=== PATIENT | female | born 1985 | race Caucasian/White ===

== ENCOUNTER 2021-02-20 02:54 | Inpatient (IN) ==
[2021-02-20] MEDS ORDERED: OXYTOCIN 30 UNITS/500 ML BAG IV PRN ×3 (04:56→21:14)
[2021-02-20] MEDS: LACTATED RINGER'S 1,000 ML IV PRN ×3 (05:00→13:58)
[2021-02-20] MEDS ORDERED: SODIUM CHLORIDE 0.9% INJ 10 ML VIAL ONE (05:10)
[2021-02-20] MEDS ORDERED: ePHEDrine sulfate 50 MG/ML AMP ONE (05:10)
[2021-02-20] MEDS ORDERED: fentaNYL 2MCG/ML ROPIVACAINE 1.25MG/ML 100 ML BAG EPI ONE (05:11)
[2021-02-20] MEDS ORDERED: fentaNYL citrate 100 MCG/2 ML VIAL ONE (05:11)
[2021-02-20] MEDS ORDERED: BUPIVACAINE 0.25% 30 ML VIAL ONE (05:11)
[2021-02-20 05:29] LABS: Hematocrit (blood only) 36.2 % (37-47); Hemoglobin 12.9 g/dL (12.0-16.0); Mean Corpuscular Hemoglobin 30.8 pg (25-34); Mean Corpuscular Hgb Conc 35.6 g/dL (32-36); Mean Corpuscular Volume 86.4 fL (80-100); Platelet Count 267 K/uL (130-400); RDW Standard Deviation 41.1 fL (36.4-46.3); Red Blood Count 4.19 M/uL (4.2-5.4)
[2021-02-20] MEDS ORDERED: fentaNYL 2MCG/ML ROPIVACAINE 1.25MG/ML 100 ML BAG EPI PRN (05:35)
[2021-02-20] MEDS ORDERED: ePHEDrine sulfate 50 MG/ML AMP IV PRN (05:35)
[2021-02-20] MEDS ORDERED: NALOXONE HCL 1 MG in SODIUM CHLORIDE 0.9% 1000ML 1,000 ML IV PRN (05:35)
[2021-02-20] MEDS ORDERED: diphenhydrAMINE 50 MG/ML VIAL IV PRN (05:35)
[2021-02-20] MEDS ORDERED: NALOXONE HCL 0.4 MG/1 ML VIAL/CARP IV PRN (05:35)
[2021-02-20] MEDS ORDERED: ONDANSETRON INJ 2 MG/ML 2 ML VIAL IV PRN (05:35)
--- NOTE | 2021-02-20 05:35 | Anesthesiology Consultation ---
Date of Service February 20, 2021 Assessment & Plan ASA ASA2 Proposed Anesthesia Anesthesia Type: Labor Epidural Risk / Benefits Reviewed With: PT / POA / Parent / Guardian, Accepts Plan and Informed Consent Obtained History Height/Weight Height: 5 ft 3 in Weight: 74.843 kg Allergies Allergy/AdvReac Type Severity Reaction Status Date / Time No Known Drug Allergies Allergy Verified 02/19/21 10:01 Medications Home Medications Medication Instructions Recorded Confirmed Last Taken prenat.vits,paras,[id number] 1 tab PO DAILY 07/07/19 02/20/21 02/19/21 ferrous sulfate 325 mg (65 mg 325 mg PO DAILY 12/26/20 02/20/21 02/19/21 iron) tablet Active Medications Generic Name Dose Route Start Last Admin Trade Name Freq PRN Reason Stop Dose Admin Lactated Ringer's 1,000 mls @ 125 mls/hr 02/20/21 04:56 02/20/21 06:06 Lr IV 02/22/21 04:55 125 mls/hr .Q8H PRN Administration L&D Protocol Protocol Past Medical History Medical History Encounter for anatomic survey Hx of renal calculi Hx of varicella Missed Supervision of normal intrauterine in primigravida Exercise / Class Metabolic Activity II 4-5 Yardwork/Stairs/Walk up hill Past Family History Family History Father Colorectal cancer Hypertension Denies family history of Ovarian cancer Breast cancer Past Surgical History Surgical History H/O lithotripsy [place] teeth removed Past Anesthesia History No Hx of Anesthesia Complications and No Family Hx of Anesthesia Complications History of PONV No Hx of PONV and No Hx of Motion Sickness Social History Smoking Status: Never smoker Hx Alcohol Use: No Hx Substance Use: No Review of Systems denies fever/cough/ colds/ chest pain/ SOB/ SHANITA denies SHANITA Physical Exam Vital Signs Last Vital Signs Temp 36.6 C 02/20/21 06:29 Pulse 97 H 02/20/21 06:35 Resp 18 02/20/21 03:17 BP 131/75 02/20/21 06:35 Pulse Ox 100 02/20/21 06:35 ENMT Mouth: no TMJ abnormality and no dentition abnormality Thyromental Distance: > or= 3.5 Finger Breadths Mallampati Class: II Neck neck extension not limited Respiratory normal respiratory effort; no respiratory distress Auscultation: lungs clear to auscultation bilaterally Cardiovascular Rate/Rhythm: regular rate and regular rhythm Neurologic moves all extremities Psychiatric Orientation: alert and oriented x 3 Testing Laboratory Results 02/20/21 05:16
[2021-02-20 05:57] LABS: Basophils # (auto) 0.01 K/uL (0-0.2); Basophils % (auto) 0.1 %; Eosinophils # (auto) 0.02 K/uL (0-0.5); Eosinophils % (auto) 0.1 %; Immature Granulocytes # (auto) 0.08 K/uL (0.00-0.02); Immature Granulocytes % (auto) 0.4 %; Lymphocytes # (auto) 3.27 K/uL (1.2-3.4); Lymphocytes % (auto) 18.3 %; Monocytes # (auto) 0.78 K/uL (0.11-0.59); Monocytes % (auto) 4.4 %; Neutrophils # (auto) 13.75 K/uL (1.4-6.5); Neutrophils % (auto) 76.7 %
--- NOTE | 2021-02-20 06:57 | History & Physical Report ---
Date of Service February 20, 2021 Assessment & Plan (1) Supervision of normal intrauterine in primigravida: 35yo at 40.1 weks [place]. Early labor 1. Fetus: Cat 1 2. Labor: Progressing. Will AROM when appropriate 3. GBS negative 4. Vitals WNL 5. Epidural PRN (2) Normal labor: Admission and Anticipated Discharge Date Admission Date: February 20, 2021 History of Present Illness Primary Care Provider: NO PCP 35yo at 40.1 weks [place]. Presents with regular contractions. Cervical change noted over 2hr period. Denies VB or LOF. Good FM. 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 OB Labs: Blood Type O Positive 08/08/20 Antibody Screen NEGATIVE 08/08/20 Hemoglobin 10.5 g/dL (12.0-16.0) L 11/27/20 Hematocrit 30.5 % (37-47) L 11/27/20 Mean Corpuscular Volume 87.8 fL (80-100) 08/08/20 Platelet Count 300 K/uL (130-400) 08/08/20 Rubella IgG Antibody Immune (Immune) 08/08/20 Rapid Plasma Reagin Nonreactive (Nonreactive) 08/08/20 Hepatitis B Surface Antigen Neg (Neg) 08/08/20 HIV (1&2) Ab and P24 Ag, 4th Gener Neg (Neg) 08/08/20 Glucose 1 Hour 50 gm Load 101 mg/dl (70-130) 11/27/20 OB Optional Labs: Chlamydia trachomatis RNA NOT DETECTED (NOT DETECTED) 07/25/20 Neisseria gonorrhoeae RNA NOT DETECTED (NOT DETECTED) 07/25/20 Thyroid Stimulating Hormone (TSH) 2.471 uIU/mL (0.30-4.50) 04/22/20 Labs Reviewed: low risk panorama--akh neg cf/sma--ak Allergies Allergy/AdvReac Type Severity Reaction Status Date / Time No Known Drug Allergies Allergy Verified 02/19/21 10:01 Home Medications Medication Instructions Recorded Confirmed Type prenat.vits,paras,[id number] 1 tab PO DAILY 07/07/19 02/20/21 History ferrous sulfate 325 mg (65 mg 325 mg PO DAILY 12/26/20 02/20/21 History iron) tablet Patient History Medical History Encounter for anatomic survey Hx of renal calculi Hx of varicella Missed Supervision of normal intrauterine in primigravida Surgical History H/O lithotripsy [place] teeth removed Family History Father Colorectal cancer Hypertension Denies family history of Ovarian cancer Breast cancer Social History Smoking Status: Never smoker Hx Alcohol Use: No Hx Substance Use: No Preferred Language: Guinean Beliefs That Will Affect Care: None marital status: marital status details: Marcell Stokes (31) [phone] Current Living Situation: Spouse Current Living Situation Comment: with spouse, no pets current occupational status: employed current occupation: self employeed-loss prevention manager Other Information That Helps Us Care for You: No Feels Safe at Home: Yes Safety Concerns: Feels Safe At This Time Assistive Devices: None Physical Exam Constitutional: WD/WN, vitals as above Psychiatric: A+Ox3, euthymic affect Genitourinary: OB Exam Abdomen: + vertex Manual OB Exam: + cervical dilation 3 cm, + cervical effacement 70%, + station high and + amniotic fluid OB Exam Monitor Tracing: + external FHT monitor used, + external uterine monitor used, + category I and + normal FHT variability; no early decelerations present, no late decelerations present and no variable decelerations Results & Data ([facility]) Vital Signs (Past 12 Hours) Vital Signs Temp Pulse Resp BP Pulse Ox 02/20/21 06:50 85 117/73 02/20/21 06:45 92 H 116/75 100 02/20/21 06:41 96 H 121/79 02/20/21 06:40 94 H 99 02/20/21 06:35 97 H 131/75 100 02/20/21 06:30 97 H 117/79 100 02/20/21 06:29 36.6 C 02/20/21 06:25 101 H 100 06/17/21 06:23 79 132/87 02/20/21 06:21 139 H 179/127 H 02/20/21 06:20 98 H 100 02/20/21 06:18 99 H 93 02/20/21 06:17 80 154/72 H 02/20/21 06:15 92 H 99 02/20/21 06:14 91 H 146/86 H 02/20/21 06:12 138/101 H 02/20/21 06:10 76 100 02/20/21 06:05 82 100 02/20/21 06:00 90 100 02/20/21 05:56 96 H 88 L 02/20/21 05:55 94 H 100 02/20/21 05:50 91 H 100 02/20/21 05:45 97 H 143/75 H 99 02/20/21 03:20 88 135/92 02/20/21 03:17 36.6 C 88 18 136/97 02/20/21 03:10 36.6 C 88 18 136/97 Coding Level of Care Code None Diagnoses Supervision of normal intrauterine in primigravida Z34.00 Normal labor O80; Z37.9
--- NOTE | 2021-02-20 09:08 | Labor Progress Brief Note ---
Date of Service February 20, 2021 Subjective Reason For Note: Routine Evaluation Assessment & Plan (1) Supervision of normal intrauterine in primigravida: 35yo at 40.1 weks [place]. Early labor 1. Fetus: Cat 1 2. Labor: Complete. Unclear if rupture or not. Laboring down until urge to push 3. GBS negative 4. Vitals WNL 5. Epidural PRN (2) Normal labor: Admission and Anticipated Discharge Date Admission Date: February 20, 2021 Physical Exam Genitourinary: OB Exam Abdomen: + vertex Manual OB Exam: + cervical dilation 10 cm, + cervical effacement 100% and + station + 1 OB Exam Monitor Tracing: + external FHT monitor used, + external uterine monitor used, + category I and + normal FHT variability; no early decelerations present, no late decelerations present and no variable decelerations Results & Data ([facility]) Vital Signs (Past 12 Hours) Vital Signs Temp Pulse Resp BP Pulse Ox 02/20/21 09:00 90 125/78 100 02/20/21 08:59 107 H 121/83 02/20/21 08:55 94 H 100 02/20/21 08:50 92 H 100 02/20/21 08:45 104 H 100 02/20/21 08:44 101 H 128/78 02/20/21 08:40 98 H 100 02/20/21 08:35 99 H 100 02/20/21 08:30 117 H 18 100 02/20/21 08:29 109 H 129/76 02/20/21 08:25 99 H 100 02/20/21 08:20 88 100 02/20/21 08:15 85 100 02/20/21 08:13 100 H 113/69 02/20/21 08:10 86 100 02/20/21 08:05 81 100 02/20/21 08:00 85 16 100 02/20/21 07:59 86 110/68 02/20/21 07:55 86 100 02/20/21 07:50 79 100 02/20/21 07:45 90 100 02/20/21 07:44 82 115/61 02/20/21 07:40 88 100 02/20/21 07:35 95 H 100 02/20/21 07:30 100 H 16 100 02/20/21 07:28 150 H 114/66 02/20/21 07:25 98 H 100 02/20/21 07:20 94 H 100 02/20/21 07:15 106 H 118/77 100 02/20/21 07:10 103 H 100 02/20/21 07:05 36.7 C 94 H 18 100 02/20/21 07:00 101 H 99 02/20/21 06:55 91 H 111/71 99 02/20/21 06:50 89 117/73 99 02/20/21 06:45 92 H 116/75 100 02/20/21 06:41 96 H 121/79 02/20/21 06:40 94 H 99 02/20/21 06:35 97 H 131/75 100 02/20/21 06:30 97 H 117/79 100 02/20/21 06:29 36.6 C 02/20/21 06:25 101 H 100 02/20/21 06:23 79 132/87 02/20/21 06:21 139 H 179/127 H 02/20/21 06:20 98 H 100 02/20/21 06:18 99 H 93 02/20/21 06:17 80 154/72 H 02/20/21 06:15 92 H 99 02/20/21 06:14 91 H 146/86 H 02/20/21 06:12 138/101 H 02/20/21 06:10 76 100 02/20/21 06:05 82 100 02/20/21 06:00 90 100 02/20/21 05:56 96 H 88 L 02/20/21 05:55 94 H 100 02/20/21 05:50 91 H 100 02/20/21 05:45 97 H 143/75 H 99 02/20/21 03:20 88 135/92 02/20/21 03:17 36.6 C 88 18 136/97 02/20/21 03:10 36.6 C 88 18 136/97 Coding Level of Care Code None Diagnoses Supervision of normal intrauterine in primigravida Z34.00 Normal labor O80; Z37.9
--- NOTE | 2021-02-20 17:46 | Anesthesia Procedure Note ---
Date of Service February 20, 2021 Anesthesia Post Epidural Note Vital Signs Vital Signs: Temp Pulse Resp BP Pulse Ox 36.9 C 96 H 16 122/74 97 02/20/21 15:45 02/20/21 16:43 02/20/21 14:00 02/20/21 16:43 02/20/21 16:20 Pain Intensity Abdomen: Pain Intensity: 5 Notes Mental Status: alert / awake / arousable and participated in evaluation Patient Amnestic to Procedure: No Nausea / Vomiting: adequately controlled Pain: adequately controlled Airway Patency, RR, SpO2: stable & adequate BP & HR: stable & adequate Hydration State: stable & adequate Neuraxial Anesthesia: was administered and sensory block is resolving Anesthetic Complications: no major complications apparent and Pt Satisfied with anesthetic care Epidural: Removed without complications and With tip intact
--- NOTE | 2021-02-20 17:53 | Delivery Summary ---
Vaginal Delivery Summary Date of Service February 20, 2021 Patient is a 35-year-old 2 para 0-0-1-0 white female who presented at 40-1/7 weeks in active labor. Membranes ruptured spontaneously. She received effective epidural analgesia. She required some Pitocin augmentation of her labor, but she progressed to full dilation and pushed effectively for delivery of a viable female infant over intact perineum. The rest of the infant delivered easily after the head was delivered. The infant was placed on the mother's abdomen for further attention and drying. The was spontaneously crying and moving all 4 limbs. The placenta was expressed intact with a three- vessel cord. Post bleeding was controlled with dilute Pitocin. Estimated blood loss was 200 cc. There was no perineal lacerations. A superficial abrasion of the labia was not bleeding and therefore not repaired. Mother and infant were doing well after delivery. Vaginal Delivery Summary [facility] Vaginal Delivery Charge Delivery Type Details: [facility]
[2021-02-20] MEDS ORDERED: BENZOCAINE 20% AER SPR 82.5 GM CAN EXT ONE (18:05)
[2021-02-20] MEDS ORDERED: SUPERCREAM 0.870% 15 GM JAR EXT PRN (21:14)
[2021-02-20] MEDS ORDERED: ACETAMINOPHEN 325 MG TAB PO PRN (21:14)
[2021-02-20] MEDS ORDERED: oxyCODONE/ACETAMINOPHEN 5mg/325mg TAB PO PRN (21:14)
[2021-02-20] MEDS ORDERED: BENZOCAINE 20% AER SPR 82.5 GM CAN EXT PRN (21:14)
[2021-02-20] MEDS ORDERED: HYDROCORTISONE ACETATE 25 MG SUPP PR PRN (21:14)
[2021-02-20] MEDS ORDERED: DIPHTHERIA/TETANUS/PERTUSSIS 0.5 ML SYR/VIAL IM ONE (21:14)
[2021-02-20] MEDS ORDERED: bisacodyL 10 MG SUPP PR PRN (21:14)
[2021-02-20] MEDS ORDERED: IBUPROFEN 600 MG TAB PO PRN (21:14)
--- NOTE | 2021-02-21 06:44 | Obstetrical Progress Note ---
Date of Service February 21, 2021 Assessment & Plan (1) care following vaginal delivery: S/p Day 1 - Feels well today. Eating well, voiding well, ambulating well. - Pain well-controlled with ibuprofen 600mg Q4H PRN. - Vital signs reviewed and WNL. - Hemoglobin reviewed. 12.9 (antepartum) - Blood Type: O+, antibody negative, GBS negative, Rubella Immune, COVID-19 negative - Continue routine care: encourage ambulation, monitor and control pain with Motrin PRN, continue regular OB diet, monitor lochia - Encourage breast feeding. - Pt counseled on discharge instructions, desires discharge this afternoon, after 24 hours - After discharge, will have 6-wk follow-up with Dr. Crabtree Admission and Anticipated Discharge Date Admission Date: February 20, 2021 Supervising Physician Co-Signing Physician Notes Resident Physician Supervision Note: I interviewed and examined the patient. Discussed with Dr. Merrill and agree with findings and plan as documented in the note. Any exceptions or clarifications are listed here: [None] Documented By: Janet Barragan MD, FACOG Subjective HPI Ibeth Montelongo is a 35 y/o female who is PPD 1 spontaneous vaginal delivery at 40 1/7 weeks. She reports feeling well overall this morning. No abdominal cramping and mild pain well managed on analgesics. Voiding well. Tolerating meals overnight without difficulty. Patient has been able to ambulate some. passing gas and no bowel movement. Has persistent lochia with some improvement this morning. Currently . Review of Systems Review of Systems: ROS Denies fever or chills. Denies shortness of breath or cough. Denies chest pain. Denies breast pain. Denies dysuria. Denies leg pain or leg swelling. Physical Exam Physical Exam: PE General: Alert, oriented. No acute distress. Cardiac: Regular rate and rhythm. No murmurs. Respiratory: Clear to auscultation bilaterally a/p, no wheezes/rales/rhonchi. No increased work of breathing. Symmetrical chest rise. No respiratory distress. Abdomen: Soft, nontender, nondistended. Bowel sounds present. Uterus: Uterine fundus firm, palpable 1 cm below umbilicus. Lower Extremities: No lower extremity edema or swelling. No deep calf pain. Salomon's negative bilaterally. Results & Data ([facility]) Vital Signs (Past 12 Hours) Vital Signs Temp Pulse Pulse Resp BP BP Pulse Ox 02/21/21 03:45 36.4 C L 98 H 18 126/82 02/21/21 00:15 36.8 C 102 H 18 121/82 02/20/21 21:04 36.9 C 96 H 16 124/83 100 02/20/21 19:30 102 H 126/75 02/20/21 19:23 36.4 C L 18 Resident Activity Tracking Resident Involvement: Resident Care Provided Care Provided: Adult Hospital Medicine
[2021-02-21] MEDS ORDERED: DOCUSATE SODIUM 100 MG CAP PO SCH (08:00)
[2021-02-21] MEDS ORDERED: PRENATAL VITAMIN 1 TAB PO SCH (08:00)
[2021-02-21 09:41] LABS: Hematocrit (blood only) 35.4 % (37-47); Hemoglobin 11.7 g/dL (12.0-16.0); Mean Corpuscular Hemoglobin 30.6 pg (25-34); Mean Corpuscular Hgb Conc 33.1 g/dL (32-36); Mean Corpuscular Volume 92.7 fL (80-100); Mean Platelet Volume 9.8 fL (7.4-10.4); Platelet Count 226 K/uL (130-400); RDW Coefficient of Variation 13.5 % (11.5-14.5); Red Blood Count 3.82 M/uL (4.2-5.4); White Blood Count 14.18 K/uL (4.8-10.8)
[2021-02-21] MEDS ORDERED: bisacodyL 5 MG TABEC PO SCH (20:00)
== END 2021-02-21 17:40 | disposition home or self-care (01) | DRG 807 ==
LOC: OPB 02:54 → 4S1 02:58 → 4S2 20:51

== ENCOUNTER 2022-04-20 01:38 | Inpatient (IN) ==
[2022-04-20] MEDS ORDERED: LACTATED RINGER'S 1,000 ML IV PRN (02:19)
[2022-04-20] MEDS ORDERED: OXYTOCIN 30 UNITS/500 ML BAG IV PRN ×2 (02:19→02:49)
[2022-04-20] MEDS ORDERED: DIPHTHERIA/TETANUS/PERTUSSIS 0.5 ML SYR/VIAL IM ONE (02:49)
[2022-04-20] MEDS ORDERED: ACETAMINOPHEN 325 MG TAB PO PRN (02:49)
[2022-04-20] MEDS ORDERED: BENZOCAINE 20% AER SPR 82.5 GM CAN EXT PRN (02:49)
[2022-04-20] MEDS ORDERED: HYDROCORTISONE ACETATE 25 MG SUPP PR PRN (02:49)
[2022-04-20 03:21] LABS: Hematocrit (blood only) 31.8 % (34.1-44.9); Hemoglobin 10.4 g/dl (12.0-16.0); Mean Corpuscular Hemoglobin 27.8 pg (25.0-34.0); Mean Corpuscular Hgb Conc 32.7 g/dL (32.0-36.0); Mean Platelet Volume 10.1 fL (9.4-12.3); Platelet Count 282 K/uL (130-400); RDW Coefficient of Variation 13.6 % (11.5-14.5); RDW Standard Deviation 42.3 fL (36.4-46.3); Red Blood Count 3.74 M/uL (3.93-5.22); White Blood Count 18.18 K/ul (4.8-10.8)
[2022-04-20] MEDS: IBUPROFEN 600 MG TAB PO PRN ×3 (06:40→21:34)
--- NOTE | 2022-04-20 07:54 | Delivery Summary ---
DATE OF SERVICE: 04/20/2022 PROCEDURE: Normal spontaneous vaginal delivery. SURGEON: Vincent Etienne MD. PREOPERATIVE DIAGNOSES: 1. Spontaneous labor at 37 weeks 3 days' gestational age. 2. 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 3. Advanced maternal age. POSTOPERATIVE DIAGNOSES: 1. Spontaneous labor at 37 weeks 3 days' gestational age. 2. 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 3. Advanced maternal age. 4. Status post procedure. ESTIMATED BLOOD LOSS: 100 mL DRAINS: None. FLUIDS: Continuous lactated Ringer. URINE OUTPUT: None. COMPLICATIONS: None. FINDINGS: Viable male infant with weight pending and Apgars of 8 and 9 at one and five minutes respe ctively. INDICATIONS: Ibeth is a 37-year-old G3, P1-0-1-1, currently at 37 weeks 3 days' gestational age. T he patient presented in active labor, was noted to be complete, was fully dilated on initial check. Within several minutes of being admitted, the patient pushed over 3 contractions to achieve delivery. DESCRIPTION OF PROCEDURE: The patient progressed 10 cm dilated, 100% effaced, positive 2 station, pu shed over intact perineum without anesthesia and delivered a viable male with weight and s as noted above. Head of the delivered in EVON position, restituted to right transverse. A single nuchal cord was noted, which was easily reduced. Body and shoulders quickly followed. Neonat e was noted to be vigorous upon delivery and 1 minute delayed cord clamping was initiated. Cord was then double clamped and cut. remained on maternal abdomen. Cord blood was obtained. Attention was then turned to delivery of placenta, was delivered intact, 3-vessel cord, gentle cord t raction. On inspection of the perineum, vagina, cervix, there was noted to be no lacerations. Spong e and instrument counts were correct at the completion of the case with mother and stable in the immediate post-delivery period. Job ID: [id number]
[2022-04-20] MEDS: PRENATAL VITAMIN 1 TAB PO SCH (09:11)
[2022-04-20] MEDS: DOCUSATE SODIUM 100 MG CAP PO SCH ×2 (09:11→21:34)
--- NOTE | 2022-04-21 05:59 | Obstetrical Progress Note ---
Date of Service <Caro Delgado DO - Last Filed: 04/21/22 07:19> April 21, 2022 Assessment & Plan <Caro Delgado DO - Last Filed: 04/21/22 07:19> (1) Prior miscarriage with , antepartum: (2) Encounter for supervision of normal in multigravida, antepartum: Plan s/p PPD 1: -Vital signs reviewed and WNL, Tmax at 36.9 -Hemoglobin reviewed, 10.4 (04/20) -O+, GBS-, rubella immune -Patient is doing well clinically -Encourage ambulation, monitor and treat pain with motrin PRN, monitor lochia -Return to regular diet -Discussed discharge plan with patient, will follow up at [address] Etienne <Cecily Gerard MD, FACOG - Last Filed: 04/21/22 07:32> (1) Prior miscarriage with , antepartum: (2) Encounter for supervision of normal in multigravida, antepartum: Subjective <Caro Delgado DO - Last Filed: 04/21/22 07:19> Ibeth is a 37 y/o female who is PPD #1 following at 37 3/7 weeks. She has biotinidase deficiency, no other complications in this . Patient was seen and examined at bedside. She reports feeling well overall this morning. Denies any abdominal cramping & pain well managed on analgesics. Voiding without issue. Tolerating meals overnight and able to ambulate some. Endorses passing gas but has not had a bowel movement. Has persistent lochia with some improvement this morning. Currently breast feeding. Constitutional: no fever, no chills or no sweats Respiratory: no cough, no dyspnea or no wheezing Cardiovascular: no chest pain, no palpitations or no calf pain Breast: no breast pain Genitourinary (female): no dysuria Neurologic: no headache(s) Physical Exam <Caro Delgado DO - Last Filed: 04/21/22 07:19> Constitutional WD/WN, vitals as above no acute distress Respiratory no respiratory distress Auscultation: lungs clear to auscultation bilaterally; no rales, no rhonchi and no wheezes Cardiovascular RRR, no murmur, no edema Extremities: no calf tenderness and no edema Negative Salmoon's sign bilaterally. Gastrointestinal (Abdomen) Inspection/Auscultation: normal bowel sounds Genitourinary Uterine fundus firm, palpable below the umbilicus. Results & Data ([facility]) <Caro Delgado DO - Last Filed: 04/21/22 07:19> Vital Signs (Past 12 Hours) Vital Signs Temp Pulse Resp BP Pulse Ox O2 Del Method 04/21/22 00:45 36.9 C 79 18 123/84 99 Room Air 04/20/22 20:20 36.5 C 77 20 132/83 100 Room Air <Cecily Gerard MD, FACOG - Last Filed: 04/21/22 07:32> Co-Signing Physician Notes Resident Physician Supervision Note: I interviewed and examined the patient. Discussed with Dr. Delgado and agree with findings and plan as documented in the note. Any exceptions or clarifications are listed here: Doing well. Desires d/c. Instructions given. Documented By: Cecily Gerard MD, FACOG Resident Activity Tracking <Caro Delgado DO - Last Filed: 04/21/22 07:19> Resident Involvement: Resident Care Provided Care Provided: OB Delivery
[2022-04-21] MEDS: DOCUSATE SODIUM 100 MG CAP PO SCH (07:24)
[2022-04-21] MEDS: PRENATAL VITAMIN 1 TAB PO SCH (07:25)
[2022-04-21] MEDS: IBUPROFEN 600 MG TAB PO PRN (07:25)
[2022-04-21] MEDS ORDERED: bisacodyL 5 MG TABEC PO SCH (20:00)
[2022-04-22] MEDS ORDERED: bisacodyL 10 MG SUPP PR PRN
== END 2022-04-21 12:14 | disposition home or self-care (01) | DRG 807 ==
LOC: OPB 01:38 → 4S1 01:39 → 4E2 05:25
DX: Z37.0 Single live birth; Z3A.37 37 weeks gestation of pregnancy; O99.12 Other diseases of the blood and blood-forming organs and certain disorders involving the immune mechanism complicating childbirth; O69.81X0 Labor and delivery complicated by cord around neck, without compression, not applicable or unspecified; D81.810 Biotinidase deficiency

== ENCOUNTER 2023-12-28 07:42 | Inpatient (IN) ==
[2023-12-28] MEDS ORDERED: OXYTOCIN 30 UNITS/NSS 30 UNITS/500 ML BAG IV PRN (08:03)
[2023-12-28] MEDS ORDERED: LIDOCAINE 1% LOCAL 20 ML VIAL INFIL PRN (08:03)
--- NOTE | 2023-12-28 08:26 | History & Physical Report ---
"Date of Service December 28, 2023 Assessment & Plan (1) Encounter for induction of labor: Plan: epidural pit if warranted arom when indicated monitor tracing, category 1 Admission and Anticipated Discharge Date Admission Date: December 28, 2023 History of Present Illness Primary Care Provider: NO PCP 38 yo at 40w4d admitted for IOL for post dates. Denies BAKER, CP, SOB, N/V/D, LE pain. GBS neg, RH+, -LOF, +FM Allergies Allergy/AdvReac Type Severity Reaction Status Date / Time No Known Drug Allergies Allergy Unknown Verified 12/24/23 10:26 Home Medications Medication Instructions Recorded Confirmed Type prenat.vits,paras,cgj-xzfi-jgpgk 1 tab PO DAILY 07/07/19 12/28/23 History pyridoxine (vitamin B6) PO 07/28/23 12/24/23 History Patient History Medical History Chicken pox Kidney stone Vulval lesion removed Spontaneous 07/11/2019 Spontaneous vaginal delivery 02/20/2021 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 FOB also carrier Normal labor Prior miscarriage with , antepartum Secondary female infertility Missed Hx of renal calculi Hx of varicella Supervision of normal intrauterine in primigravida Surgical History H/O lithotripsy [place] teeth removed Family History Father Colorectal cancer Hypertension High cholesterol Mother High cholesterol Denies family history of Ovarian cancer Prostate cancer Breast cancer Lung cancer Social History (Updated 05/11/23 @ 13:37 by Abbi Whitaker) Smoking Status: Never smoker Do You Dip or Chew Tobacco: No; Hx Alcohol Use: No Hx Substance Use: No Preferred Language: Congolese Communication Ability: Effective Plasterer Maintenance Required: No Beliefs That Will Affect Care: None marital status: marital status details: Marcell Stokes (34) [phone] Current Living Situation: Spouse and Family Current Living Situation Comment: lives with , son and daughter. no pets current occupational status: unemployed current occupation: stay at home mom Other Information That Helps Us Care for You: No Feels Safe at Home: Yes Safety Concerns: Feels Safe At This Time Assistive Devices: None OB History LMP: 03/19/23 : 5 Full term: 2 Premature: 0 Total Number of Induced Abortions: 0 Total Number of Spontaneous Abortions: 2 Ectopics: 0 Multiple births: 0 Number of Living Children: 2 Review of Systems reviewed, per HPI Physical Exam Physical Exam: General: patient resting comfortably, NAD answers questions appropriately. Skin: warm, dry, intact HEENT: NC/AT, anicteric sclera, conjunctiva without injection, moist mucus membranes Heart: +S1/S2, regular, no m/r/g Lungs: equal air entry bilaterally, no rales/rhonchi/wheezes Abd: +BS, soft, NT/ND, gravid uterus Cervical: 6|100|-1; moderate posterior Ext: warm, no clubbing/cyanosis or edema Neuro: nonfocal, speech intact, no facial droop : FHR baseline 130, moderate variability, accelerations present, decelerations absent Genitourinary: OB Exam Abdomen: + vertex, + estimated weight (6-7 pounds) and + irregular contractions OB Exam Monitor Tracing: + external FHT monitor used, + external uterine monitor used, + category I and + normal FHT variability Results & Data Vital Signs (Past 12 Hours) Vital Signs Temp Pulse Resp BP 12/28/23 07:53 85 132/87 12/28/23 07:51 36.4 C L 18 Supervising Physician Co-Signing Physician Notes Resident Physician Supervision Note: I interviewed and examined the patient. Discussed with Dr. López and agree with findings and plan as documented in the note. Any exceptions or clarifications are listed here: [None] Documented By: Janet Barragan MD, FACOG Resident Activity Tracking Resident Involvement: Resident Care Provided Care Provided: Adult Hospital Medicine"
[2023-12-28 08:30] LABS: Hematocrit (blood only) 36.6 % (37.0-47.0); Hemoglobin 12.2 g/dl (12.0-16.0); Mean Corpuscular Hemoglobin 28.2 pg (25.0-34.0); Mean Corpuscular Hgb Conc 33.3 g/dL (32.0-36.0); Mean Corpuscular Volume 84.7 fL (80.0-100.0); Mean Platelet Volume 10.4 fL (9.4-12.4); Platelet Count 259 K/uL (130-400); RDW Coefficient of Variation 14.1 % (11.5-14.5); RDW Standard Deviation 43.8 fL (36.4-46.3); Red Blood Count 4.32 M/uL (4.20-5.40); White Blood Count 11.18 K/ul (4.8-10.8)
[2023-12-28] MEDS: LACTATED RINGER'S 1,000 ML IV PRN (08:38)
[2023-12-28] MEDS ORDERED: ePHEDrine sulfate 50 MG/ML AMP ONE (09:09)
[2023-12-28] MEDS ORDERED: SODIUM CHLORIDE 0.9% PF INJ 10 ML VIAL ONE (09:09)
[2023-12-28] MEDS ORDERED: fentaNYL citrate PF 100 MCG/2 ML VIAL ONE (09:09)
--- NOTE | 2023-12-28 09:41 | Anesthesiology Consultation ---
Date of Service December 28, 2023 Assessment & Plan Chart Review Chart Review: Acceptable Risk for Labor Epidural Consults Requested none ASA ASA2 Proposed Anesthesia Anesthesia Type: Labor Epidural Risk / Benefits Reviewed With: PT / POA / Parent / Guardian, Accepts Plan and Informed Consent Obtained History Height/Weight Height: 5 ft 3 in Weight: 77.111 kg Allergies Allergy/AdvReac Type Severity Reaction Status Date / Time No Known Drug Allergies Allergy Unknown Verified 12/24/23 10:26 Medications Home Medications Medication Instructions Recorded Confirmed Last Taken prenat.vits,paras,dji-kfll-ccelf 1 tab PO DAILY 07/07/19 12/28/23 12/27/23 08:00 pyridoxine (vitamin B6) PO 07/28/23 12/24/23 12/27/23 08:00 Active Medications Generic Name Dose Route Start Last Admin Trade Name Freq PRN Reason Stop Dose Admin Lactated Ringer's 1,000 mls @ 125 mls/hr 12/28/23 08:03 12/28/23 08:38 Lr IV 12/30/23 08:02 999 mls/hr .Q8H PRN Administration L&D Protocol Protocol Past Medical History Medical History Chicken pox Kidney stone Vulval lesion removed Spontaneous 07/11/2019 Spontaneous vaginal delivery 02/20/2021 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 FOB also carrier Normal labor Prior miscarriage with , antepartum Secondary female infertility Missed Hx of renal calculi Hx of varicella Supervision of normal intrauterine in primigravida Exercise / Class Metabolic Activity II 4-5 Yardwork/Stairs/Walk up hill Past Family History Family History Father Colorectal cancer Hypertension High cholesterol Mother High cholesterol Denies family history of Ovarian cancer Prostate cancer Breast cancer Lung cancer Past Surgical History Surgical History H/O lithotripsy [place] teeth removed Past Anesthesia History No Hx of Anesthesia Complications and No Family Hx of Anesthesia Complications History of PONV No Hx of PONV and No Hx of Motion Sickness Social History Smoking Status: Never smoker Do You Dip or Chew Tobacco: No Hx Alcohol Use: No Hx Substance Use: No Physical Exam Vital Signs Last Vital Signs Temp 97.5 F L 12/28/23 07:51 Pulse 80 12/28/23 09:39 Resp 18 12/28/23 07:51 BP 141/84 H 12/28/23 09:30 Pulse Ox 100 12/28/23 09:39 ENMT Mouth: no dentition abnormality Thyromental Distance: > or= 3.5 Finger Breadths Mallampati Class: II Neck normal visual inspection Respiratory normal respiratory effort Auscultation: lungs clear to auscultation bilaterally Cardiovascular Rate/Rhythm: regular rate and regular rhythm Testing Laboratory Results 12/28/23 08:11
[2023-12-28] MEDS: fentANYL 2 MCG/ML BUPIVacaine 0.125%-NSS 100ML BAG ONE (09:44)
[2023-12-28] MEDS: BUPIVACAINE 0.25% PF 30 ML VIAL ONE (09:54)
[2023-12-28] MEDS ORDERED: LIDOCAINE 2% MPF LOCAL 5 ML VIAL EPI PRN (10:05)
[2023-12-28] MEDS ORDERED: fentANYL 2 MCG/ML BUPIVacaine 0.125%-NSS 100ML BAG EPI PRN (10:05)
[2023-12-28] MEDS ORDERED: NALBUPHINE HCL 5 MG in SYRINGE 0 ML IV PRN (10:05)
[2023-12-28] MEDS ORDERED: fentaNYL citrate PF 100 MCG/2 ML VIAL EPI STA (10:05)
[2023-12-28] MEDS ORDERED: SODIUM CHLORIDE 0.9% PF INJ 10 ML VIAL EPI PRN (10:05)
[2023-12-28] MEDS ORDERED: ONDANSETRON INJ 2 MG/ML 2 ML VIAL IV PRN (10:05)
[2023-12-28] MEDS ORDERED: BUPIVACAINE 0.25% PF 30 ML VIAL EPI STA (10:05)
[2023-12-28] MEDS ORDERED: ePHEDrine sulfate 50 MG/ML AMP IV PRN (10:05)
[2023-12-28] MEDS ORDERED: fentaNYL citrate PF 100 MCG/2 ML VIAL EPI PRN (10:05)
[2023-12-28] MEDS ORDERED: LIDOCAINE 2%/EPINEPHRINE 1:200,000 20 ML PF EPI STA (10:05)
[2023-12-28] MEDS ORDERED: ROPIVACAINE 0.5% PF 5 MG/ML 20 ML VIAL EPI PRN (10:05)
[2023-12-28] MEDS ORDERED: diphenhydrAMINE 50 MG/ML VIAL IV PRN (10:05)
[2023-12-28] MEDS ORDERED: BUPIVACAINE 0.25% PF 30 ML VIAL EPI PRN (10:05)
[2023-12-28] MEDS ORDERED: NALOXONE HCL 1 MG in SODIUM CHLORIDE 0.9% 1,000 ML IV PRN (10:05)
[2023-12-28] MEDS ORDERED: SODIUM CHLORIDE 0.9% PF INJ 10 ML VIAL EPI STA (10:05)
[2023-12-28] MEDS ORDERED: NALOXONE HCL 0.4 MG/1 ML VIAL/CARP IV PRN (10:05)
[2023-12-28] MEDS: LIDOCAINE 2%/EPINEPHRINE 1:200,000 20 ML PF ONE (10:34)
[2023-12-28] MEDS: OXYTOCIN 30 UNITS/NSS 30 UNITS/500 ML BAG IV PRN (13:50)
[2023-12-28] MEDS ORDERED: oxyCODONE/ACETAMINOPHEN 5mg/325mg TAB PO PRN (14:07)
[2023-12-28] MEDS ORDERED: HYDROCORTISONE ACETATE 25 MG SUPP PR PRN (14:07)
[2023-12-28] MEDS ORDERED: BENZOCAINE 20% SPRY 85 APPLN/85 GM CAN EXT PRN (14:07)
[2023-12-28] MEDS ORDERED: ACETAMINOPHEN 325 MG TAB PO PRN (14:07)
[2023-12-28] MEDS ORDERED: DIPHTHER/TETAN/PERTUS Vaccine (Tdap, Adol/Adult) 0.5mL IM ONE (14:07)
[2023-12-28] MEDS ORDERED: bisacodyL 10 MG SUPP PR PRN (14:07)
--- NOTE | 2023-12-28 14:41 | Anesthesia Procedure Note ---
Date of Service December 28, 2023 Anesthesia Post Epidural Note Vital Signs Vital Signs: Temp Pulse Resp BP Pulse Ox 98.4 F 83 20 125/70 100 12/28/23 12:30 12/28/23 14:25 12/28/23 14:25 12/28/23 14:12/28/23 13:49 Notes Mental Status: alert / awake / arousable and participated in evaluation Nausea / Vomiting: adequately controlled Pain: adequately controlled Airway Patency, RR, SpO2: stable & adequate BP & HR: stable & adequate Hydration State: stable & adequate Neuraxial Anesthesia: was administered and sensory block is resolving Anesthetic Complications: no major complications apparent and Pt Satisfied with anesthetic care Epidural: Removed without complications and With tip intact
--- NOTE | 2023-12-28 14:55 | Delivery Summary ---
Vaginal Delivery Summary Date of Service December 28, 2023 Vaginal Delivery Summary [facility] Patient is a 38-year-old 3 para 2-0-0-2 female EDC of 12/24/2023 who presented for induction because of postterm . She is noted to be 6 cm upon admission although she was not uncomfortable. After epidural analgesia, membranes were ruptured for small amount of clear fluid. She then progressed without Pitocin to full dilation in the urge to push. She pushed effectively over intact perineum for delivery of a viable male . After the head was delivered the rest of the infant delivered easily and was placed on mother's abdomen for further attention and drying. He was vigorous crying and moving all 4 limbs. After 1 minute, the cord was clamped and cut. After cord blood was obtained, the placenta was expressed intact with a three-vessel cord. bleeding was controlled with dilute Pitocin and fundal massage. Perineum was noted to be intact. QBL was 100 mL. Mother and infant were doing well after delivery. [facility] Vaginal Delivery Charge Delivery Type Details: [facility]
[2023-12-28] MEDS: IBUPROFEN 600 MG TAB PO PRN (20:51)
[2023-12-28] MEDS: DOCUSATE SODIUM 100 MG CAP PO SCH (20:51)
[2023-12-29 06:47] LABS: Hemoglobin 11.8 g/dl (12.0-16.0); Mean Corpuscular Hgb Conc 32.8 g/dL (32.0-36.0); Mean Corpuscular Volume 85.5 fL (80.0-100.0); Mean Platelet Volume 10.7 fL (9.4-12.4); Platelet Count 240 K/uL (130-400); RDW Coefficient of Variation 14.1 % (11.5-14.5); RDW Standard Deviation 43.9 fL (36.4-46.3); Red Blood Count 4.21 M/uL (4.20-5.40); White Blood Count 11.06 K/ul (4.8-10.8)
--- NOTE | 2023-12-29 07:24 | Obstetrical Progress Note ---
Date of Service December 29, 2023 Assessment & Plan (1) Encounter for care and examination after delivery: satisfactory course continue current care plan Subjective Ambulation: ambulating normally Voiding: no voiding problems Passing Gas:: Yes Diet Tolerance:: regular diet Lochia:: Small Feeding Type:: breast feeding Review of Systems All systems reviewed & are unremarkable except as noted in HPI & below Physical Exam Constitutional WD/WN, vitals as above Psychiatric A+Ox3, euthymic affect Genitourinary OB Exam Abdomen: + fundal height Fundus: + firm and + relation to umbilicus (at U) Results & Data Vital Signs (Past 12 Hours) Vital Signs Temp Pulse Resp BP Pulse Ox O2 Del Method 12/29/23 03:15 97.9 F 84 16 124/81 99 Room Air 12/28/23 23:20 97.7 F 80 16 119/81 97 Room Air 12/28/23 22:00 98.2 F 12/28/23 20:05 97.5 F L 94 H 18 127/76 100 Room Air
[2023-12-29] MEDS: PRENATAL VITAMIN 1 TAB PO SCH (08:25)
[2023-12-29] MEDS ORDERED: bisacodyL 5 MG TABEC PO SCH (20:00)
== END 2023-12-29 14:30 | disposition home or self-care (01) | DRG 807 ==
LOC: 4S1 07:42 → 4E2 16:39

== ENCOUNTER 2025-03-01 02:58 | Inpatient (IN) ==
[2025-03-01] MEDS ORDERED: OXYTOCIN 30 UNITS/NSS 30 UNITS/500 ML BAG IV PRN (03:20)
[2025-03-01] MEDS ORDERED: LIDOCAINE 1% LOCAL 20 ML VIAL INFIL PRN (03:20)
--- NOTE | 2025-03-01 03:26 | History & Physical Report ---
Date of Service March 01, 2025 Assessment & Plan (1) Normal labor: Plan admit, fetus category one, desires epidural. arom as needed. anticipate . History of Present Illness Chief Complaint: contractions Primary Care Provider: NO PCP Patient is a with iup at 40 1/7 weeks who presents to labor and delivery with contractions. no lof/vb. +fm and Delivery Plans Carrier of biotinidase deficiency FOB also +, they discussed with immersion metalcleaner with testing co and Luis Hernandez, decline further genetics counseling AMA *Weekly NSTs @ 36wks OB Labs: Blood Type O Positive 08/23/24 Antibody Screen NEGATIVE 08/23/24 Hgb 10.8 g/dl (12.0-16.0) L 12/21/24 Hct 33.7 % (37.0-47.0) L 12/21/24 MCV 86.3 fL (80.0-100.0) 08/23/24 Plt Count 301 K/uL (130-400) 08/23/24 Rubella IgG Antibody Immune (Immune) 08/23/24 RPR Nonreactive (Nonreactive) 05/19/23 Treponema pallidum Ab Negative (Negative) 12/21/24 Hep Bs Antigen Negative (Negative) 08/23/24 Hep Bs Antigen NON-REACTIVE (NON-REACTIVE) 05/19/23 Hepatitis C Antibody Negative (Negative) 08/23/24 Hepatitis C Ab (EIA) NON-REACTIVE (NON-REACTIVE) 05/19/23 HIV 1&2 Ab/P24 Ag 4thGn Negative (Negative) 08/23/24 HIV (1&2) Ag & Ab Conf NON-REACTIVE (NON-REACTIVE) 05/19/23 Glucose 1 Hr 50 gm 82 mg/dl (70-130) 12/21/24 OB Optional Labs: Chlamydia trachomatis RNA Not Detected (NotDetected) 08/23/24 Neisseria gonorrhoeae RNA Not Detected (NotDetected) 08/23/24 Thyroid Stimulating Hormone (TSH) 2.471 uIU/mL (0.30-4.50) 04/22/20 Labs Reviewed: neg cf/sma in prior pregnnacy--HK gbs neg Allergies Allergy/AdvReac Type Severity Reaction Status Date / Time No Known Drug Allergies Allergy Unknown Verified 02/22/25 14:45 Home Medications Medication Instructions Recorded Confirmed Type prenat.vits,paras,[id number]-[id number] 1 tab PO DAILY 07/07/19 02/22/25 History Patient History Medical History Chicken pox Kidney stone Vulval lesion removed Spontaneous 07/11/2019 Spontaneous vaginal delivery 02/20/2021 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 FOB also carrier Normal labor Prior miscarriage with , antepartum Secondary female infertility Missed Hx of renal calculi Hx of varicella Supervision of normal intrauterine in primigravida Surgical History H/O lithotripsy [place] teeth removed Family History Father Colorectal cancer Hypertension High cholesterol Mother High cholesterol Denies family history of Ovarian cancer Prostate cancer Breast cancer Lung cancer Social History (Updated 08/22/24 @ 14:40 by Abbi Whitaker) Smoking Status: Never smoker Do You Dip or Chew Tobacco: No; Hx Alcohol Use: No Hx Substance Use: No Preferred Language: Irish Communication Ability: Effective Legal Compliance Officer Required: No Beliefs That Will Affect Care: None marital status: marital status details: Marcell Stokes (35) [phone] Current Living Situation: Spouse and Family Current Living Situation Comment: lives with , children, no pets current occupational status: unemployed current occupation: stay at home mom Feels Safe at Home: Yes Assistive Devices: None OB History Past Pregnancies Del. Date GA wks Lbr Lgth wt Sex Type del Anes Place Del Prov ? Comment 07/11/19 Aborted-Spontaneous 02/20/21 40 6lb 6.4oz F Epi dural [facility] Dr. Crabtree No 04/20/22 37 6lb 12.6oz M No ne [facility] Dr. Etienne N 12/11/22 8 Aborted-Spontaneous MAB @ 8w 12/28/23 40 7lb 13.2oz M Ep idural [facility] Leyda Saldana [employer] History noncontributory Physical Exam Constitutional: WD/WN, vitals as above Gastrointestinal (Abdomen): soft, gravid, nt Psychiatric: A+Ox3, euthymic affect Genitourinary: cx--5.5/80/-2 per nursing toco--q3-6min efm--120s with mod variabiliyt, small accels, no decels Results & Data Vital Signs (Past 12 Hours) Vital Signs Pulse BP 03/01/25 03:14 82 141/76 H Coding Level of Care Code None Diagnoses Normal labor O80; Z37.9
[2025-03-01] MEDS: LACTATED RINGER'S 1,000 ML IV PRN (03:30)
[2025-03-01 03:55] LABS: Hematocrit (blood only) 35.1 % (37.0-47.0); Hemoglobin 11.7 g/dl (12.0-16.0); Mean Corpuscular Hemoglobin 28.4 pg (25.0-34.0); Mean Corpuscular Hgb Conc 33.3 g/dL (32.0-36.0); Mean Corpuscular Volume 85.2 fL (80.0-100.0); Mean Platelet Volume 9.8 fL (9.4-12.4); Platelet Count 246 K/uL (130-400); RDW Standard Deviation 45.9 fL (36.4-46.3); Red Blood Count 4.12 M/uL (4.20-5.40); White Blood Count 11.77 K/ul (4.8-10.8)
[2025-03-01] MEDS: LIDOCAINE 2%/EPINEPHRINE 1:200,000 20 ML PF ONE (04:28)
[2025-03-01] MEDS: BUPIVACAINE 0.25% PF 30 ML VIAL ONE (04:28)
[2025-03-01] MEDS: fentANYL 2 MCG/ML BUPIVacaine 0.125%-NSS 100ML BAG ONE (04:28)
--- NOTE | 2025-03-01 04:43 | Anesthesiology Consultation ---
Date of Service March 01, 2025 Assessment & Plan Chart Review Chart Review: Acceptable Risk for Labor Epidural Consults Requested none History Height/Weight Height: 5 ft 3 in Weight: 77.111 kg Allergies Allergy/AdvReac Type Severity Reaction Status Date / Time No Known Drug Allergies Allergy Unknown Verified 02/22/25 14:45 Medications Home Medications Medication Instructions Recorded Confirmed Last Taken prenat.vits,paras,[id number]-[id number] 1 tab PO DAILY 07/07/19 03/01/25 02/28/25 Active Medications Generic Name Dose Route Start Last Admin Trade Name Freq PRN Reason Stop Dose Admin Lactated Ringer's 1,000 mls @ 125 mls/hr 03/01/25 03:20 03/01/25 04:00 Lr IV 03/03/25 03:19 125 mls/hr .Q8H PRN Infusion L&D Protocol Protocol Past Medical History Medical History Chicken pox Kidney stone Vulval lesion removed Spontaneous 07/11/2019 Spontaneous vaginal delivery 02/20/2021 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 FOB also carrier Normal labor Prior miscarriage with , antepartum Secondary female infertility Missed Hx of renal calculi Hx of varicella Supervision of normal intrauterine in primigravida Past Family History Family History Father Colorectal cancer Hypertension High cholesterol Mother High cholesterol Denies family history of Ovarian cancer Prostate cancer Breast cancer Lung cancer Past Surgical History Surgical History H/O lithotripsy [place] teeth removed Social History Smoking Status: Never smoker Do You Dip or Chew Tobacco: No Hx Alcohol Use: No Hx Substance Use: No Physical Exam Vital Signs Last Vital Signs Temp 36.7 C 03/01/25 03:19 Pulse 88 03/01/25 04:40 Resp 18 03/01/25 03:19 BP 117/64 03/01/25 04:40 Pulse Ox 99 03/01/25 04:39 Testing Laboratory Results 03/01/25 03:41
[2025-03-01] MEDS ORDERED: NALBUPHINE HCL INJ 10 MG/ML AMP IV PRN (04:44)
[2025-03-01] MEDS ORDERED: SODIUM CHLORIDE 0.9% PF INJ 10 ML VIAL EPI PRN (04:44)
[2025-03-01] MEDS ORDERED: BUPIVACAINE 0.25% PF 30 ML VIAL EPI PRN (04:44)
[2025-03-01] MEDS ORDERED: fentaNYL citrate PF 100 MCG/2 ML VIAL EPI STA (04:44)
[2025-03-01] MEDS ORDERED: ROPIVACAINE 0.5% PF 5 MG/ML 20 ML VIAL EPI PRN (04:44)
[2025-03-01] MEDS ORDERED: ePHEDrine sulfate 50 MG/ML AMP IV PRN (04:44)
[2025-03-01] MEDS ORDERED: LIDOCAINE 2%/EPINEPHRINE 1:200,000 20 ML PF EPI STA (04:44)
[2025-03-01] MEDS ORDERED: fentaNYL citrate PF 100 MCG/2 ML VIAL EPI PRN (04:44)
[2025-03-01] MEDS ORDERED: NALOXONE HCL 1 MG in SODIUM CHLORIDE 0.9% 1,000 ML IV PRN (04:44)
[2025-03-01] MEDS ORDERED: BUPIVACAINE 0.25% PF 30 ML VIAL EPI STA (04:44)
[2025-03-01] MEDS ORDERED: SODIUM CHLORIDE 0.9% PF INJ 10 ML VIAL EPI STA (04:44)
[2025-03-01] MEDS ORDERED: diphenhydrAMINE 50 MG/ML VIAL IV PRN (04:44)
[2025-03-01] MEDS ORDERED: LIDOCAINE 2% MPF LOCAL 5 ML VIAL EPI PRN (04:44)
[2025-03-01] MEDS ORDERED: fentANYL 2 MCG/ML BUPIVacaine 0.125%-NSS 100ML BAG EPI PRN (04:44)
[2025-03-01] MEDS ORDERED: NALOXONE HCL 0.4 MG/1 ML VIAL/CARP IV PRN (04:44)
[2025-03-01] MEDS: OXYTOCIN 30 UNITS/NSS 30 UNITS/500 ML BAG IV PRN (07:22)
[2025-03-01] MEDS ORDERED: bisacodyL 10 MG SUPP PR PRN (07:32)
[2025-03-01] MEDS ORDERED: BENZOCAINE 20% SPRY 85 APPLN/85 GM CAN EXT PRN (07:32)
[2025-03-01] MEDS ORDERED: oxyCODONE/ACETAMINOPHEN 5mg/325mg TAB PO PRN (07:32)
[2025-03-01] MEDS ORDERED: ACETAMINOPHEN 325 MG TAB PO PRN (07:32)
[2025-03-01] MEDS ORDERED: HYDROCORTISONE ACETATE 25 MG SUPP PR PRN (07:32)
--- NOTE | 2025-03-01 07:48 | Anesthesia Procedure Note ---
Date of Service March 01, 2025 Anesthesia Post Epidural Note Vital Signs Vital Signs: Temp Pulse Resp BP Pulse Ox 36.6 C 84 18 114/70 100 03/01/25 05:00 03/01/25 07:46 03/01/25 03:19 03/01/25 07:46 03/01/25 07:24 Notes Mental Status: alert / awake / arousable Nausea / Vomiting: adequately controlled Pain: adequately controlled Airway Patency, RR, SpO2: stable & adequate BP & HR: stable & adequate Hydration State: stable & adequate Neuraxial Anesthesia: was administered and sensory block is resolving Anesthetic Complications: no major complications apparent and Pt Satisfied with anesthetic care Epidural: Removed without complications and With tip intact
[2025-03-01] MEDS: SODIUM CHLORIDE 0.9% PF INJ 10 ML VIAL ONE (08:27)
[2025-03-01] MEDS: fentaNYL citrate PF 100 MCG/2 ML VIAL ONE (08:27)
[2025-03-01] MEDS: ePHEDrine sulfate 50 MG/ML AMP ONE (08:27)
[2025-03-01] MEDS: OXYTOCIN 30 UNITS/500ML NSS IV ONE (08:32)
[2025-03-01] MEDS: PRENATAL VITAMIN 1 TAB PO SCH (08:35)
[2025-03-01] MEDS: DOCUSATE SODIUM 100 MG CAP PO SCH (08:35)
[2025-03-01] MEDS: DIPHTHER/TETAN/PERTUS Vaccine (Tdap, Adol/Adult) 0.5mL IM ONE (12:09)
[2025-03-01] MEDS: IBUPROFEN 600 MG TAB PO PRN (15:26)
--- NOTE | 2025-03-02 05:31 | Obstetrical Progress Note ---
Date of Service March 02, 2025 Assessment & Plan (1) Encounter for care and examination after delivery: (2) Elderly multigravida, currently : Plan Pt is 39 yo post- day 1 s/p at 40w1d. complicated by AM. Pt is recovering well and ready to DC to home - Encourage ambulation - Encourage breast feeding - Pain control with tylenol, ibuprofen - Anticipate DC today Admission and Anticipated Discharge Date Admission Date: March 01, 2025 Supervising Physician Co-Signing Physician Notes Resident Physician Supervision Note: I interviewed and examined the patient. Discussed with Dr. Martinez and agree with findings and plan as documented in the note. Any exceptions or clarifications are listed here: [None] Documented By: Janet Barragan MD, FACOG Subjective Pt is 39 yo post- day 1 s/p at 40w1d Ambulation:In room Voiding:voiding normally Passing gas: yes BM: No Diet tolerance:regular diet Lochia:bloody, no clots Feeding type: breast Current pain level: 1-3 /10 improved with ibuprofen Resting comfortably this morning in NAD. Denies BAKER, CP, SOB, N/V/D, LE pain/swelling. Review of Systems Review of Systems: As per HPI Physical Exam Constitutional: WD/WN, vitals as above Respiratory: normal respiratory effort, lungs clear to auscultation Cardiovascular: RRR, no murmur, no edema Gastrointestinal (Abdomen): normal bowel sounds, soft, nontender, no hepatosplenomegaly Uterine fundus firm and at 1 cm below level of umbilicus Neurologic: PERRL, EOMI, accommodation nl, no face palsy, no dysarthria Moving all 4 extremities on command Psychiatric: A+Ox3, euthymic affect Results & Data Vital Signs (Past 12 Hours) Vital Signs Temp Pulse Resp BP Pulse Ox O2 Del Method 03/02/25 00:00 36.5 C 78 16 127/84 Room Air 03/01/25 20:30 36.4 C L 76 16 117/78 99 Room Air Resident Activity Tracking Resident Involvement: Resident Care Provided Care Provided: Adult Hospital Medicine
[2025-03-02 06:48] LABS: Hematocrit (blood only) 31.1 % (37.0-47.0); Hemoglobin 10.2 g/dl (12.0-16.0)
[2025-03-02 09:30] VITALS: BP 119/80; PULSE 88; RESP 18; TEMP 97.3; O2SAT 97
[2025-03-02] MEDS ORDERED: bisacodyL 5 MG TABEC PO SCH (20:00)
--- NOTE | 2025-03-07 11:48 | Delivery Summary ---
Vaginal Delivery Summary Date of Service March 01, 2025 Vaginal Delivery Summary Pre-operative Diagnosis: at term active labor Post-operative Diagnosis: same thin meconium Procedure: arom EBL: please see delivery summary/nursing record Anesthesia: epidural Procedure: The patient pushed to deliver a viable infant . The nose and mouth were bulb suctioned on the perineum and the rest of the infant was then delivered without difficulty. The baby was vigorous. The nose and mouth were again bulb suctioned and the infant was placed in the maternal abdomen for drying and attention. Cord was clamped and cut at one minute of life. Cord blood obtained. Placenta delivered spontaneous, intact with a three vessel cord. Cervix/sulci/rectum/perineum were intact. Hemostasis obtained with dilute pitocin and fundal massage. Apgars were 8/9. Mother and baby doing well at the end of the delivery. [facility] Vaginal Delivery Charge Delivery Type Details: [facility]
== END 2025-03-02 11:30 | disposition home or self-care (01) | DRG 807 ==
LOC: OPB 02:58 → 4S1 02:59 → 4E2 12:09